=== PATIENT | female | born 1950 | race Caucasian/White ===

== ENCOUNTER 2019-09-08 09:45 | Outpatient (CLI) | payer MEDICARE, OTHER, SELFPAY ==
--- NOTE | 2019-09-08 10:16 | CT_ITS ---
WS: [id number] CT CHEST WITH INTRAVENOUS CONTRAST HISTORY: PULMONARY NODULE TECHNIQUE: Contiguous 5 mm axial imaging performed on the thorax. Coronal and sagittal reformats are submitted. All CT scans at [facility] use at least one of these dose optimization techniq ues: automated exposure control; mA and/or kV adjustment per patient size (includes targeted exams wh ere dose is matched to clinical indication); or iterative reconstruction. CONTRAST: Omnipaque 300; 95 mL IV. DLP: 588.51 mGycm COMPARISON: 09/05/2018 Lungs and central airway: Normally expanded lungs. Linear atelectasis in the RIGHT middle lobe. Small nodule associated with the atelectasis is stable at 4.4 mm. No pneumonia. No increase in size of the nodules. Pleura: Normal. No pleural effusion. Heart and pericardium: Mild cardiomegaly. No pericardial effusion. Mediastinum and carlos: No mediastinum or hilar adenopathy. Vessels: Mild atherosclerosis aorta and coronary arteries. Chest wall and lower neck: RIGHT axillary king dissection. Postoperative changes RIGHT breast. Upper abdomen: Negative. Osseous structures: Mild increase in thoracic kyphosis. No osteoblastic or osteolytic bone disease. CT/CT chest w con* [id number] IMPRESSION: 1. Stable pulmonary nodule in the RIGHT middle lobe since 09/05/2018. This nodu le is associated with atelectasis. Very benign in appearance. 12 month chest C T follow-up is recommended. At 12 months if this nodule remains stable no addit ional workup will be necessary. 2. 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 No nancy opathy.
[2019-09-08] MEDS: iohexol 300 mg/mL 100 mL Btl IV (11:00)
== END 2019-09-08 09:46 | disposition home or self-care (01) ==
LOC: RADWPI 09:48
PROVIDERS: Family Provider Internal Medicine; PCP Internal Medicine; Visit Provider Internal Medicine
DX: R91.1 Solitary pulmonary nodule (principal)
CPT/HCPCS: 71260; Q9967

== ENCOUNTER 2020-11-10 13:39 | Outpatient (CLI) | payer MEDICARE, OTHER, SELFPAY ==
--- NOTE | 2020-11-10 13:51 | CT_ITS ---
WS: [id number] CT CHEST TECHNIQUE: Contrast enhanced CT of the chest with coronal and sagittal reformatted images. CLINICAL INFORMATION: PULMONARY NODULE COMPARISON: September 08, 2019 DLP: [id number] scans at [facility] use at least one of these dose optimization techniques: automat ed exposure control; mA and/or kV adjustment per patient size (includes targeted exams where dose is matched to clinical indication); or iterative reconstruction. FINDINGS: Prior postoperative changes right breast lumpectomy with right axillary king dissection. Again seen is the noncalcified pulmonary nodule right middle lobe measuring 4.5 mm along the fissure. This is st able compared to previous. No new suspicious pulmonary parenchymal opacities. No acute pulmonary infi ltrates. No focal pneumonia or pleural fluid. No mediastinal or hilar lymphadenopathy. No axillary lymphadenopathy. Thoracic kyphosis. Adrenal glan ds are normal. CT/CT chest w con* [id number] IMPRESSION: 1. Tiny noncalcified subpleural nodule along the fissure right middle lobe is unchanged compared to previous. This is also unchanged compared to August 2018 . 2. No new suspicious pulmonary parenchymal opacities. 3. No acute pulmonary infiltrates. No focal pneumonia. 4. Prior postoperative changes right breast lumpectomy with axillary king dis section. 5. No mediastinal or hilar lymphadenopathy.
[2020-11-10] MEDS: iohexol 300 mg/mL 100 mL Btl IV (14:11)
== END 2020-11-10 13:40 | disposition home or self-care (01) ==
PROVIDERS: PCP Internal Medicine; Visit Provider Internal Medicine
DX: R91.1 Solitary pulmonary nodule (principal)
CPT/HCPCS: 71260; Q9967

== ENCOUNTER 2021-05-15 11:02 | Outpatient (CLI) | payer MEDICARE, OTHER, SELFPAY ==
--- NOTE | 2021-05-15 11:50 | MR_ITS ---
WS: [id number] MRI RIGHT SHOULDER NONCONTRAST TECHNIQUE: Sagittal T2, coronal T1, T2 and proton density imaging. Axial gradient PDE imaging. CLINICAL INFORMATION: PAIN IN RIGHT SHOULDER COMPARISON: None. FINDINGS: Moderate degenerative arthritis at the AC joint with downsloping acromion, and slight subacromial spu rring. Mild narrowing of the subacromial space. Moderate joint effusion. Advanced degenerative arthri tis glenohumeral joint with [id number] articulation and subchondral cystic change with edema. Hyper trophic spurring along the medial humeral neck. Chronic thinning of the rotator cuff with muscular atrophy. High-grade intrasubstance tear involving the supraspinatus at the level of the glenohumeral joint with fluid signal intensity. Supraspinatus t endinopathy with insertional tear distally. Chronic thinning of the infraspinatus which appears intac t. Chronic thinning of the teres minor. Atrophic subscapularis with distal tendon intact. Biceps tend on appears intact within the bicipital groove. Intra-articular biceps tendon appears intact. Biceps l abral anchor appears intact. MR/MR shoulder RT wo con* [id number] IMPRESSION: 1. Advanced degenerative arthritis glenohumeral joint with complete loss of olesya int space and [id number] articulation. Associated subchondral cystic change w ith hypertrophic spurring and edema. 2. Advanced atrophy involving the rotator cuff with high-grade intrasubstance tear involving the distal supraspinatus with fluid signal. Advanced atrophy of the remainder of the rotator cuff which appears grossly intact. 3. Normal biceps tendon in the bicipital groove. 4. Moderate joint effusion. 5. Biceps labral anchor appears intact.
== END 2021-05-15 11:03 | disposition home or self-care (01) ==
PROVIDERS: PCP Internal Medicine; Visit Provider Internal Medicine
DX: M25.511 Pain in right shoulder (principal); M19.011 Primary osteoarthritis, right shoulder
CPT/HCPCS: 73221

== ENCOUNTER 2023-07-30 10:07 | Outpatient (CLI) | payer MEDICARE, OTHER, SELFPAY ==
--- NOTE | 2023-07-30 10:14 | MR_ITS ---
WS: [id number] MRI BRAIN WITHOUT CONTRAST HISTORY: MEMORY LOSS COMPARISON: None available. TECHNIQUE: Diffusion imaging, multiplanar T1, T2 and FLAIR imaging obtained. No evidence for acute infarct or hemorrhage. Zamora-white matter differentiation is normal. Mild bilate ral hippocampal atrophy. Mild atrophy and volume loss and mild small vessel ischemic disease. No infarct. Ventricles and extra-axial spaces are normal. No inferior displacement of cerebellar tonsils. The sella turcica and pituitary gland are unremarkabl e. Dural venous sinuses and [place] demonstrate no abnormality on this unenhanced studies. Paranasal sinuses: Clear. Mastoid air cells: Normal. Calvarium and scalp: Intact. IMPRESSION: 1. No acute infarct. Normal diffusion imaging. 2. Mild volume loss and mild small vessel ischemic disease. 3. Mild bilateral hippocampal atrophy.
== END 2023-07-30 10:08 | disposition home or self-care (01) ==
PROVIDERS: PCP Internal Medicine; Visit Provider Internal Medicine
DX: R41.3 Other amnesia (principal); G31.9 Degenerative disease of nervous system, unspecified
CPT/HCPCS: 70551

== ENCOUNTER → 2023-10-23 07:26 | Outpatient (BNVA) | payer MEDICARE, SELFPAY | PROVIDERS: PCP Internal Medicine; Referring Provider Internal Medicine; Visit Provider Specialist | DX: G30.9 Alzheimer's disease, unspecified (principal); F02.80 Dementia in other diseases classified elsewhere, unspecified severity, without behavioral disturbance, psychotic disturbance, mood disturbance, and anxiety | CPT/HCPCS: 36415; 82542; 99204 ==

== ENCOUNTER → 2024-02-26 08:20 | Outpatient (BNVA) | payer MEDICARE, OTHER, SELFPAY | PROVIDERS: PCP Internal Medicine; Visit Provider Specialist | DX: G30.9 Alzheimer's disease, unspecified (principal); F02.80 Dementia in other diseases classified elsewhere, unspecified severity, without behavioral disturbance, psychotic disturbance, mood disturbance, and anxiety | CPT/HCPCS: 96116; 99214; 99215 ==

== ENCOUNTER → 2024-06-04 09:12 | Outpatient (BNVA) | payer MEDICARE, OTHER, SELFPAY | PROVIDERS: PCP Internal Medicine; Visit Provider Specialist | DX: G30.9 Alzheimer's disease, unspecified (principal); F02.80 Dementia in other diseases classified elsewhere, unspecified severity, without behavioral disturbance, psychotic disturbance, mood disturbance, and anxiety | CPT/HCPCS: 0346U; 36415; 96116; 99215 ==

== ENCOUNTER 2024-10-19 10:16 | Outpatient (CLI) | payer MEDICARE, OTHER, SELFPAY | END 2024-10-19 10:17 | disposition home or self-care (01) | LOC: LAB 10:18 | PROVIDERS: PCP Internal Medicine; Visit Provider Specialist | DX: G30.9 Alzheimer's disease, unspecified (principal); F02.80 Dementia in other diseases classified elsewhere, unspecified severity, without behavioral disturbance, psychotic disturbance, mood disturbance, and anxiety | CPT/HCPCS: 36415; 83520 ==

== ENCOUNTER → 2024-10-23 07:59 | Outpatient (BNVA) | payer MEDICARE, OTHER, SELFPAY | PROVIDERS: PCP Internal Medicine; Visit Provider Specialist | DX: G30.9 Alzheimer's disease, unspecified (principal); F02.80 Dementia in other diseases classified elsewhere, unspecified severity, without behavioral disturbance, psychotic disturbance, mood disturbance, and anxiety | CPT/HCPCS: 99214 ==

== ENCOUNTER 2024-11-12 12:36 | Oncology outpatient (recurring) (ONCR) | payer MEDICARE, OTHER, SELFPAY ==
[2024-11-12] MEDS: diphenhydrAMINE 25 mg Capsule 50 MG PO (13:16)
[2024-11-12] MEDS: acetaminophen 500 mg Tablet 1000 MG PO (13:17)
[2024-11-12 13:38] LABS: Basophils # 0.1 10^3/uL (0.0-0.1); Basophils % 0.8 %; Eosinophils # 0.2 10^3/uL (0.0-0.8); Hematocrit 39.7 % (36-47); Lymphocytes # 1.4 10^3/uL (0.8-4.8); Mean Corpuscular Hemoglobin 30.9 pg (27-33); Mean Corpuscular Volume 93.6 fl (85-98); Mean Platelet Volume 9.7 fL (7.4-10.4); Monocytes # 0.5 10^3/uL (0.2-0.9); Monocytes % 7.4 %; Neutrophils # 4.23 10^3/uL (1.8-7.7); Neutrophils % 66.5 %; Nucleated Red Blood Cells % 0 %; Platelet Count 228 10^3/cmm (157-399); Red Blood Count 4.24 10^6/uL (3.85-5.65); Red Cell Distribution Width 13.1 % (12.1-15.1); White Blood Count 6.36 10^3/uL (3.29-11.43)
--- NOTE | 2024-11-12 14:30 | MR_ITS ---
WS: [id number] MRI BRAIN WITHOUT CONTRAST HISTORY: G30.9 - Alzheimer's disease, unspecified COMPARISON: 07/30/2023 TECHNIQUE: Diffusion imaging, multiplanar T1, T2 and FLAIR imaging obtained. No evidence for acute infarct or hemorrhage. Zamora-white matter differentiation is normal. No remote or acute infarct. Moderate cerebral volume loss. Volume loss slightly greater involving the frontal lobes. Mild small vessel ischemic type changes throughout the white matter. Mild bilateral hippocampal atrophy. Mildly prominent extra-axial spaces due to volume loss. No inferior displacement of cerebellar tonsils. The sella turcica and pituitary gland are unremarkable. Dural venous sinuses and [place] demonstrate no abnormality on this unenhanced studies. Paranasal sinuses: Clear. Mastoid air cells: Normal. Calvarium and scalp: Intact. MR/MR head wo con* [id number] IMPRESSION: 1. No acute infarcts, edema or hydrocephalus. 2. Moderate volume loss and mild small vessel disease. Minimal progression of volume loss since the prior study. Volume loss is slightly more prevalent invol ving the frontal lobes. 3. Mild hippocampal atrophy.
[2024-11-12] MEDS: donanemab-azbt 700 MG in sodium chloride 0.9% 50 ML 180 MG IV (15:33)
[2024-11-12] MEDS: sodium chloride 0.9% 250 ML 75 ML IV (15:33)
[2024-11-12 16:19] LABS: Alanine Aminotransferase 14 U/L (0-33); Alkaline Phosphatase 75 U/L (35-105); Anion Gap 14.8 (5-19); Aspartate Amino Transferase 16 U/L (0-32); Blood Urea Nitrogen 21 mg/dL (8-23); Calcium 8.8 mg/dL (8.5-10.5); Carbon Dioxide 24 mmol/L (22-29); Chloride 108 mmol/L (98-107); Globulin 2.6 g/dL (1.3-4.6); Glucose 86 mg/dL (65-115); Osmolality Calculated 298 mOsm/kg (285-295); Potassium 3.8 mmol/L (3.5-5.1); Sodium 143 mmol/L (136-145); Total Bilirubin 0.3 mg/dL (0.15-1.2); Total Protein 6.6 g/dL (6.6-8.7)
[2024-11-12 16:49] VITALS: BP 135/79; PULSE 78; TEMP 36.7; O2SAT 93
[2024-11-12 17:14] LABS: Thyroid Stimulating Hormone 1.38 uIU/mL (0.27-4.20)
== END 2024-11-16 23:59 | disposition home or self-care (01) ==
PROVIDERS: PCP Internal Medicine; Visit Provider Specialist
DX: G31.84 Mild cognitive impairment of uncertain or unknown etiology (principal); F02.80 Dementia in other diseases classified elsewhere, unspecified severity, without behavioral disturbance, psychotic disturbance, mood disturbance, and anxiety; G30.9 Alzheimer's disease, unspecified; Z79.899 Other long term (current) drug therapy; I73.89 Other specified peripheral vascular diseases
CPT/HCPCS: 70551; 80053; 84443; 85025; 96413; J0175; J7050; J9999

== ENCOUNTER 2024-11-30 13:03 | Outpatient (CLI) | payer MEDICARE, OTHER, SELFPAY ==
--- NOTE | 2024-11-30 13:45 | MR_ITS ---
WS: [id number] MRI HEAD WITHOUT CONTRAST TECHNIQUE: Sagittal T1, T2 axial, T2 axial FLAIR, axial and coronal T1 images, axial susceptibility weighted imaging, axial diffusion weighted images, and coronal T2 images were obtained. CLINICAL INFORMATION: G30.9 - Alzheimer's disease, unspecified COMPARISON: MRI 11/12/2024 FINDINGS: No evidence of restricted diffusion to suggest acute ischemia. Moderate small vessel changes. Moderate parenchymal volume loss. Small vessel changes in the sade. Volume loss worse in the frontal and temporal lobes. Normal optic chiasm and pituitary infundibulum. Moderate symmetric atrophy temporal lobes and hippocampal formations. No hemosiderin on the susceptibility weighted images. Mild mucosal thickening in the paranasal sinuses. Mastoid air cells are well aerated. MR/MR head wo con* [id number] IMPRESSION: 1. No evidence of restricted diffusion to suggest acute ischemia. 2. Moderate small vessel changes with moderate parenchymal volume loss. Small vessel changes in the sade. 3. Parenchymal volume loss worst in the bilateral frontal lobes and temporal l obes unchanged compared to previous. 4. No hemosiderin on the susceptibly weighted images.
== END 2024-11-30 13:04 | disposition home or self-care (01) ==
LOC: RAD 13:05
PROVIDERS: PCP Internal Medicine; Visit Provider Specialist
DX: G30.9 Alzheimer's disease, unspecified (principal); F02.80 Dementia in other diseases classified elsewhere, unspecified severity, without behavioral disturbance, psychotic disturbance, mood disturbance, and anxiety; R93.0 Abnormal findings on diagnostic imaging of skull and head, not elsewhere classified; G31.89 Other specified degenerative diseases of nervous system; J34.89 Other specified disorders of nose and nasal sinuses
CPT/HCPCS: 70551

== ENCOUNTER 2024-12-10 08:56 | Oncology outpatient (recurring) (ONCR) | payer MEDICARE, OTHER, SELFPAY ==
[2024-12-10] MEDS: sodium chloride 0.9% 250 ML 75 ML IV (09:59)
[2024-12-10] MEDS: acetaminophen 500 mg Tablet 1000 MG PO (10:03)
[2024-12-10] MEDS: diphenhydrAMINE 25 mg Capsule 50 MG PO (10:03)
[2024-12-10] MEDS: donanemab-azbt 700 MG in sodium chloride 0.9% 50 ML 180 MG IV (10:44)
[2024-12-10 11:30] VITALS: BP 118/74; PULSE 80; O2SAT 96
== END 2024-12-16 23:59 | disposition home or self-care (01) ==
LOC: ONCMED 08:57
PROVIDERS: PCP Internal Medicine; Visit Provider Specialist
DX: G31.84 Mild cognitive impairment of uncertain or unknown etiology (principal); Z79.899 Other long term (current) drug therapy; G30.9 Alzheimer's disease, unspecified; F02.80 Dementia in other diseases classified elsewhere, unspecified severity, without behavioral disturbance, psychotic disturbance, mood disturbance, and anxiety
CPT/HCPCS: 96413; 99213; J0175; J7050; J9999

== ENCOUNTER 2024-12-28 13:23 | Outpatient (CLI) | payer MEDICARE, OTHER, SELFPAY ==
--- NOTE | 2024-12-28 13:45 | MR_ITS ---
WS: [id number] MRI HEAD WITHOUT CONTRAST TECHNIQUE: Sagittal T1, T2 axial, T2 axial FLAIR, axial and coronal T1 images, axial susceptibility weighted imaging, axial diffusion weighted images, and coronal T2 images were obtained. CLINICAL INFORMATION: G30.9 - Alzheimer's disease, unspecified COMPARISON: MRI 10/2024 and 11/2024 FINDINGS: No evidence of restricted diffusion to suggest acute ischemia. Moderate small vessel changes with moderate parenchymal volume loss. Small vessel changes in the sade. Normal vascular flow voids at the skull base. No extra-axial fluid collections. Paranasal sinuses are well aerated. Mastoid air cells are well aerated. No hemosiderin on the susceptibility weighted images. Normal optic chiasm and pituitary infundibulum. Moderate symmetric atrophy temporal lobes and hippocampal formations. MR/MR head wo con* [id number] IMPRESSION: 1. No evidence of restricted diffusion to suggest acute ischemia. 2. Moderate small vessel changes with moderate parenchymal volume loss. Small vessel changes in the sade. 3. Moderate symmetric atrophy temporal lobes and hippocampal formations appear stable. 4. Parenchymal volume loss worse in the frontal and temporal lobes unchanged 5. No hemosiderin.
== END 2024-12-28 13:24 | disposition home or self-care (01) ==
PROVIDERS: PCP Internal Medicine; Visit Provider Specialist
DX: G30.9 Alzheimer's disease, unspecified (principal); F02.80 Dementia in other diseases classified elsewhere, unspecified severity, without behavioral disturbance, psychotic disturbance, mood disturbance, and anxiety; R93.0 Abnormal findings on diagnostic imaging of skull and head, not elsewhere classified; G31.89 Other specified degenerative diseases of nervous system
CPT/HCPCS: 70551

== ENCOUNTER 2025-01-07 08:56 | Oncology outpatient (recurring) (ONCR) | payer MEDICARE, OTHER, SELFPAY ==
[2025-01-07] MEDS: diphenhydrAMINE 25 mg Capsule 50 MG PO (09:33)
[2025-01-07] MEDS: sodium chloride 0.9% 250 ML 75 ML IV (09:33)
[2025-01-07] MEDS: acetaminophen 500 mg Tablet 1000 MG PO (09:34)
[2025-01-07] MEDS: donanemab-azbt 700 MG in sodium chloride 0.9% 50 ML 180 MG IV (10:06)
[2025-01-07 11:00] VITALS: BP 117/64; PULSE 72; RESP 16; TEMP 36.5; O2SAT 98
[2025-01-07 11:52] VITALS: BP 127/79; PULSE 57; RESP 16; TEMP 36.4; O2SAT 93
== END 2025-01-16 23:59 | disposition home or self-care (01) ==
LOC: ONCMED 08:56
PROVIDERS: PCP Internal Medicine; Visit Provider Specialist
DX: G31.84 Mild cognitive impairment of uncertain or unknown etiology (principal); G30.9 Alzheimer's disease, unspecified; F02.80 Dementia in other diseases classified elsewhere, unspecified severity, without behavioral disturbance, psychotic disturbance, mood disturbance, and anxiety; Z79.899 Other long term (current) drug therapy
CPT/HCPCS: 96365; 99214; J0175; J7050; J9999

== ENCOUNTER 2025-01-25 13:10 | Outpatient (CLI) | payer MEDICARE, OTHER, SELFPAY ==
--- NOTE | 2025-01-25 13:45 | MR_ITS ---
WS: [id number] MRI HEAD WITHOUT CONTRAST TECHNIQUE: Sagittal T1, T2 axial, T2 axial FLAIR, axial and coronal T1 images, axial susceptibility weighted imaging, axial diffusion weighted images, and coronal T2 images were obtained. CLINICAL INFORMATION: G30.9 - Alzheimer's disease, unspecified COMPARISON: MRI 12/28/2024 FINDINGS: No evidence of restricted diffusion to suggest acute ischemia. Moderate small vessel changes with moderate parenchymal volume loss is stable. Small vessel changes in the sade. Normal vascular flow voids at the skull base. No extra-axial fluid collections. Paranasal sinuses are well aerated. Mastoid air cells are well aerated. Normal optic chiasm and pituitary infundibulum. Moderate symmetric atrophy temporal lobes and hippocampal formations unchanged compared to previous. Single punctate focus of hemosiderin in the RIGHT frontal lobe. A few tiny foci in the parasagittal parietal lobes better seen on today's study but probably stable compared to previous. MR/MR head wo con* [id number] IMPRESSION: 1. No evidence of restricted diffusion to suggest acute ischemia. 2. Moderate small vessel changes with moderate parenchymal volume loss. 3. Small vessel changes in the sade. 4. Moderate symmetric atrophy temporal lobes hippocampal formations unchanged. 5. Parenchymal volume loss worse in the frontal and temporal lobes unchanged f rom previous 6. A few tiny foci of hemosiderin in the parasagittal parietal lobes and a sin gle focus in the RIGHT frontal lobe better seen on today's study but appear sta ble.
== END 2025-01-25 13:11 | disposition home or self-care (01) ==
LOC: RAD 13:11
PROVIDERS: PCP Internal Medicine; Visit Provider Specialist
DX: G30.9 Alzheimer's disease, unspecified (principal); F02.80 Dementia in other diseases classified elsewhere, unspecified severity, without behavioral disturbance, psychotic disturbance, mood disturbance, and anxiety; R93.0 Abnormal findings on diagnostic imaging of skull and head, not elsewhere classified; G31.89 Other specified degenerative diseases of nervous system
CPT/HCPCS: 70551

== ENCOUNTER 2025-02-04 08:50 | Oncology outpatient (recurring) (ONCR) | payer MEDICARE, OTHER, SELFPAY ==
[2025-02-04] MEDS: sodium chloride 0.9% 250 ML 75 ML IV (10:19)
[2025-02-04] MEDS: acetaminophen 500 mg Tablet 1000 MG PO (10:22)
[2025-02-04] MEDS: diphenhydrAMINE 50 mg/mL SDV 1mL IVP (10:23)
[2025-02-04] MEDS: donanemab-azbt 1,400 MG in sodium chloride 0.9% (100 ml) 100 ML 360 MG IV (11:24)
[2025-02-04 12:11] VITALS: BP 130/62; PULSE 54; RESP 16; TEMP 35.9; O2SAT 99
== END 2025-02-15 23:59 | disposition home or self-care (01) ==
PROVIDERS: PCP Internal Medicine; Visit Provider Specialist
DX: F02.80 Dementia in other diseases classified elsewhere, unspecified severity, without behavioral disturbance, psychotic disturbance, mood disturbance, and anxiety (principal); Z79.899 Other long term (current) drug therapy; G30.9 Alzheimer's disease, unspecified
CPT/HCPCS: 96365; 96375; 99214; J0175; J1200; J7050; J9999

== ENCOUNTER 2025-03-05 08:19 | Oncology outpatient (recurring) (ONCR) | payer MEDICARE, OTHER, SELFPAY ==
[2025-03-05 08:57] VITALS: BP 133/69; PULSE 68; RESP 17; TEMP 36.5; O2SAT 98
[2025-03-05] MEDS: donanemab-azbt 1,400 MG in sodium chloride 0.9% (100 ml) 100 ML 360 MG IV (09:50)
[2025-03-05 10:36] VITALS: BP 118/67; PULSE 55; RESP 16; TEMP 36.1; O2SAT 96
== END 2025-03-18 23:59 | disposition home or self-care (01) ==
PROVIDERS: PCP Internal Medicine; Visit Provider Specialist
DX: G31.84 Mild cognitive impairment of uncertain or unknown etiology (principal); Z79.899 Other long term (current) drug therapy
CPT/HCPCS: 96413; J0175; J7050; J9999

== ENCOUNTER 2025-04-01 08:49 | Oncology outpatient (recurring) (ONCR) | payer MEDICARE, OTHER, SELFPAY ==
[2025-04-01 09:34] VITALS: PULSE 69; RESP 18; TEMP 36.6; O2SAT 95
[2025-04-01] MEDS: donanemab-azbt 1,400 MG in sodium chloride 0.9% (100 ml) 100 ML 360 MG IV (09:53)
[2025-04-01 10:35] VITALS: BP 112/78; PULSE 78; RESP 18; TEMP 36.6; O2SAT 98
== END 2025-04-18 23:59 | disposition home or self-care (01) ==
PROVIDERS: PCP Internal Medicine; Visit Provider Specialist
DX: G31.84 Mild cognitive impairment of uncertain or unknown etiology (principal); Z79.899 Other long term (current) drug therapy
CPT/HCPCS: 96365; J0175; J7050; J9999

== ENCOUNTER → 2025-04-06 10:37 | Outpatient (BNVA) | payer MEDICARE, OTHER, SELFPAY | PROVIDERS: PCP Internal Medicine; Visit Provider Specialist | DX: G30.9 Alzheimer's disease, unspecified (principal); F02.80 Dementia in other diseases classified elsewhere, unspecified severity, without behavioral disturbance, psychotic disturbance, mood disturbance, and anxiety; R03.0 Elevated blood-pressure reading, without diagnosis of hypertension | CPT/HCPCS: 99214 ==

== ENCOUNTER 2025-04-20 13:11 | Outpatient (CLI) | payer MEDICARE, OTHER, SELFPAY ==
--- NOTE | 2025-04-20 13:45 | MR_ITS ---
WS: [id number] MRI HEAD WITHOUT CONTRAST TECHNIQUE: Sagittal T1, T2 axial, T2 axial FLAIR, axial and coronal T1 images, axial susceptibility weighted imaging, axial diffusion weighted images, and coronal T2 images were obtained. CLINICAL INFORMATION: G30.9 - Alzheimer's disease, unspecified COMPARISON: MRI 01/25/2025 FINDINGS: New T2 signal abnormality involving the cortical and subcortical white matter in the RIGHT parietal lobe near the vertex posteriorly. This is most compatible with amyloid related imaging abnormality considering the context. No significant mass effect. No midline shift. No new foci of hemosiderin. Previously described tiny punctate foci of hemosiderin are unchanged. There are some tiny punctate foci of hemosiderin in the RIGHT parietal lobe but these are unchanged from prior studies. No restricted diffusion to suggest acute ischemia. Mild small vessel changes. Moderate parenchymal volume loss. Normal posterior fossa. Normal vascular flow voids at the skull base. No extra-axial fluid collections. Paranasal sinuses and mastoid air cells are well aerated. Normal posterior nasopharynx. Moderate atrophy mesial temporal lobes and hippocampal formations unchanged. MR/MR head wo con* [id number] IMPRESSION: 1. 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 No new areas of hemosiderin. Previously described tiny punctate foci of hem osiderin are unchanged. 3. No other significant herbal changes. Notified Vika Buitrago MD at 04/20/2025 2:45 PM.
== END 2025-04-20 13:12 | disposition home or self-care (01) ==
LOC: RAD 13:13
PROVIDERS: PCP Internal Medicine; Visit Provider Specialist
DX: G30.9 Alzheimer's disease, unspecified (principal); F02.80 Dementia in other diseases classified elsewhere, unspecified severity, without behavioral disturbance, psychotic disturbance, mood disturbance, and anxiety
CPT/HCPCS: 70551

== ENCOUNTER 2025-04-29 08:45 | Oncology outpatient (recurring) (ONCR) | payer MEDICARE, OTHER, SELFPAY ==
[2025-04-29] MEDS: donanemab-azbt 1,400 MG in sodium chloride 0.9% (100 ml) 100 ML 360 MG IV (10:24)
[2025-04-29 11:15] VITALS: BP 124/78; PULSE 82; RESP 18; TEMP 36.6; O2SAT 98
== END 2025-05-18 23:59 | disposition home or self-care (01) ==
LOC: ONCMED 08:45
PROVIDERS: PCP Internal Medicine; Visit Provider Specialist
DX: G31.84 Mild cognitive impairment of uncertain or unknown etiology (principal); Z79.899 Other long term (current) drug therapy
CPT/HCPCS: 96413; 99215; J0175; J7050; J9999

== ENCOUNTER 2025-05-24 11:00 | Outpatient (CLI) | payer MEDICARE, OTHER, SELFPAY ==
--- NOTE | 2025-05-24 11:00 | MR_ITS ---
WS: [id number] MRI BRAIN WITHOUT CONTRAST HISTORY: Alzheimer disease. Follow-up. COMPARISON: 04/20/2025, 01/25/2025 TECHNIQUE: Diffusion imaging, multiplanar T1, T2 and FLAIR imaging obtained. No diffusion abnormalities. Moderate small vessel disease and moderate volume loss is stable. Reidentified are the T2 and FLAIR signal hyperintensities involving the cortical and subcortical white matter of the RIGHT parietal lobe near the vertex. There is mild progression of the T2 and FLAIR signal hyperintensities which now extend to the occipital horn of the RIGHT lateral ventricle. There are a few small hemosiderin foci which are unchanged. The remaining signal abnormalities within the white matter are very similar to 01/25/2025. Ventricles and extra-axial spaces are normal. No inferior displacement of cerebellar tonsils. The sella turcica and pituitary gland are unremarkable. Dural venous sinuses and [place] demonstrate no abnormality on this unenhanced studies. Paranasal sinuses: Clear. Mastoid air cells: Normal. Calvarium and scalp: Intact. MR/MR head wo con* [id number] IMPRESSION: 1. Diffusion imaging is normal. No acute infarct. 2. Subcortical and cortical T2 signal abnormalities involving the RIGHT pariet al lobe is most consistent with treatment changes of Alzheimer's and compatible with amyloid related imaging abnormality. There has been mild progression sinc e 04/20/2025 of the parietal lobe signal abnormality. No new areas of hemorrhage. 3. The remaining T2 and FLAIR signal hyperintensities are chronic and stable.
== END 2025-05-24 11:01 | disposition home or self-care (01) ==
LOC: RAD 11:02
PROVIDERS: PCP Internal Medicine; Visit Provider Specialist
DX: G30.9 Alzheimer's disease, unspecified (principal); F02.80 Dementia in other diseases classified elsewhere, unspecified severity, without behavioral disturbance, psychotic disturbance, mood disturbance, and anxiety; I67.89 Other cerebrovascular disease; G31.89 Other specified degenerative diseases of nervous system; G93.89 Other specified disorders of brain
CPT/HCPCS: 70551; 99215

== ENCOUNTER 2025-05-27 08:43 | Oncology outpatient (recurring) (ONCR) | payer MEDICARE, OTHER, SELFPAY ==
[2025-05-27 09:05] VITALS: BP 111/79; PULSE 69; RESP 16; TEMP 36.7; O2SAT 98
[2025-05-27] MEDS: donanemab-azbt 1,400 MG in sodium chloride 0.9% (100 ml) 100 ML 360 MG IV (09:41)
[2025-05-27 10:23] VITALS: BP 104/68; PULSE 54; RESP 16; TEMP 36.6; O2SAT 97
== END 2025-06-18 23:59 | disposition home or self-care (01) ==
PROVIDERS: PCP Internal Medicine; Visit Provider Specialist
DX: Z00.6 Encounter for examination for normal comparison and control in clinical research program (principal); G30.9 Alzheimer's disease, unspecified; F02.80 Dementia in other diseases classified elsewhere, unspecified severity, without behavioral disturbance, psychotic disturbance, mood disturbance, and anxiety; Z79.899 Other long term (current) drug therapy; R03.0 Elevated blood-pressure reading, without diagnosis of hypertension; G93.6 Cerebral edema
CPT/HCPCS: 96413; 99213; J0175; J7050; J9999

== ENCOUNTER 2025-06-24 08:56 | Oncology outpatient (recurring) (ONCR) | payer MEDICARE, OTHER, SELFPAY ==
[2025-06-24 09:36] VITALS: BP 141/84; PULSE 67; RESP 17; TEMP 36.9
[2025-06-24] MEDS: donanemab-azbt 1,400 MG in sodium chloride 0.9% (100 ml) 100 ML 360 MG IV (09:55)
== END 2025-07-18 23:59 | disposition home or self-care (01) ==
LOC: ONCMED 08:57
PROVIDERS: PCP Internal Medicine; Visit Provider Specialist
DX: G31.84 Mild cognitive impairment of uncertain or unknown etiology (principal); Z79.899 Other long term (current) drug therapy; Z00.6 Encounter for examination for normal comparison and control in clinical research program
CPT/HCPCS: 96413; J0175; J7050

== ENCOUNTER 2025-08-16 11:00 | Oncology outpatient (recurring) (ONCR) | payer MEDICARE, OTHER, SELFPAY ==
[2025-07-22 08:46] VITALS: BP 125/80; PULSE 56; RESP 16; TEMP 36.3
[2025-07-22] MEDS: donanemab-azbt 1,400 MG in sodium chloride 0.9% (100 ml) 100 ML 360 MG IV (09:26)
[2025-07-22 10:00] VITALS: BP 127/96; PULSE 58; RESP 16; TEMP 36.2; O2SAT 95
--- NOTE | 2025-08-16 11:00 | MR_ITS ---
WS: [id number] MRI BRAIN WITHOUT CONTRAST HISTORY: Johana COMPARISON: 05/24/2025, 04/20/2025, 01/25/2025 TECHNIQUE: Diffusion imaging, multiplanar T1, T2 and FLAIR imaging obtained. Normal diffusion imaging. Significant improvement in the signal changes described within the supratentorial brain described on 05/24/2025 and 04/20/2025. The signal changes in the RIGHT parietal occipital lobes have essentially resolved. There are residual T2 and scattered cortical and subcortical T2 hype rintensities which are more typical for small vessel changes. These are also stable as compared to the most recent MRIs. There are a few scattered hemosiderin foci in the supratentorial brain which are reidentified. No obvious progression. Foci are better seen on today's exam due to better image quality. Mild symmetric cerebral and cerebellar volume loss and atrophy. Mild small vessel changes in the sade. Prominent extra-axial spaces and ventricles due to atrophy. No inferior displacement of cerebellar tonsils. The sella turcica and pituitary gland are unremarkable. Dural venous sinuses and [place] demonstrate no abnormality on this unenhanced studies. Paranasal sinuses: Clear. Mastoid air cells: Normal. Calvarium and scalp: Intact. MR/MR head wo con* [id number] IMPRESSION: 1. Resolved amyloid related imaging changes previously described in the pigs feet finisher ior RIGHT parietal lobe with probable extension into the occipital lobe. Signal changes have completely resolved. 2. There are additional scattered T2 and FLAIR signal hyperintensities which a re most significant for small vessel changes in the gland are stable. 3. Reidentified are multiple susceptibility artifacts from hemosiderin deposit ion. No progression.
== END 2025-08-18 23:59 | disposition home or self-care (01) ==
LOC: RAD 08-17 00:01 → ONCMED 08-17 09:37
PROVIDERS: PCP Internal Medicine; Visit Provider Specialist
DX: G31.84 Mild cognitive impairment of uncertain or unknown etiology; G93.6 Cerebral edema; G30.9 Alzheimer's disease, unspecified; R93.0 Abnormal findings on diagnostic imaging of skull and head, not elsewhere classified; G31.89 Other specified degenerative diseases of nervous system; Z53.9 Procedure and treatment not carried out, unspecified reason
CPT/HCPCS: 70551; 96413; J0175; J7050